=== PATIENT | female | born 1965 | race Caucasian/White ===

== ENCOUNTER 2019-10-27 15:47 | Outpatient (CLI) | payer OTHER, SELFPAY ==
--- NOTE | ~2019-10-27 | MM_ITS ---
EXAMINATION: MM screening [facility]reddy BI w fabiana HISTORY: Screening mammogram TECHNIQUE: Craniocaudal and mediolateral oblique 3-D tomosynthesis images were obtained and synthetic 2-D images were generated. CAD analysis was submitted and interpreted. COMPARISON: 08/27/2018, 08/20/2017, 07/21/2016 bilateral digital screening mammogram examinations BREAST PARENCHYMAL COMPOSITION: FINDINGS: There is focal asymmetry in the upper outer quadrant of the right breast, possibly due to c omposite shadowing of overlapping fibroglandular tissues. Additional diagnostic mammographic views ar e recommended, with ultrasound if required. Otherwise there is no evidence of suspicious mass, calcification, or architectural distortion to sugg est malignancy in either breast. There has been no suspicious interval change. IMPRESSION: 1. Focal asymmetry in the upper outer quadrant of the right breast 2. Diagnostic right mammogram is recommended, with ultrasound if required. BI-RADS Category 0: Incomplete: Needs additional imaging evaluation. Reviewed, dictated and finalized at location A.
== END 2019-10-27 15:48 | disposition home or self-care (01) ==
LOC: ANHIMG 15:49
PROVIDERS: PCP Family Medicine; Visit Provider Obstetrics & Gynecology
DX: Z12.31 Encounter for screening mammogram for malignant neoplasm of breast (principal); R92.8 Other abnormal and inconclusive findings on diagnostic imaging of breast
CPT/HCPCS: 77063; 77067

== ENCOUNTER 2019-11-21 11:43 | Outpatient (CLI) | payer OTHER, SELFPAY ==
--- NOTE | ~2019-11-21 | MMUS_ITS ---
EXAMINATION: MM diagnostic freddy RT w fabiana, US breast RT limited HISTORY: Follow-up right breast asymmetry TECHNIQUE: Additional 3-D tomosynthesis images of the right breast were performed and synthetic 2-D i mages were generated. CAD analysis was submitted and interpreted. High resolution right breast ultras ound was performed. COMPARISON: Comparison to multiple prior studies sequentially, with oldest reviewed study dated 07/09. BREAST PARENCHYMAL COMPOSITION: Breast composed of scattered areas of fibroglandular density. FINDINGS: MAMMOGRAPHIC FINDINGS: There are no suspicious masses, calcifications or architectural distortion in the right breast with s pot compression or mediolateral views. ULTRASOUND: Targeted left breast ultrasound: There are mildly prominent ducts. No discrete masses are identified. No sonographic evidence for malignancy. IMPRESSION: 1. No mammographic or sonographic evidence for malignancy in the right breast. 2. Routine yearly screening mammogram and regular clinical breast examination are recommended. BI-RADS Category 2: Benign finding(s). Reviewed, dictated and finalized at location A. IMPRESSION: 1. No mammographic or sonographic evidence for malignancy in the right breast. 2. Routine yearly screening mammogram and regular clinical breast examination a re recommended. BI-RADS Category 2: Benign finding(s).
== END 2019-11-21 11:44 | disposition home or self-care (01) ==
LOC: ANHIMG 11:45
PROVIDERS: PCP Family Medicine; Visit Provider Obstetrics & Gynecology
DX: R92.8 Other abnormal and inconclusive findings on diagnostic imaging of breast (principal)
CPT/HCPCS: 76642; 77061; 77065; G0279

== ENCOUNTER 2020-07-23 09:42 | Outpatient (CLI) | payer OTHER, SELFPAY | END 2020-07-23 09:43 | disposition home or self-care (01) | LOC: ANHCOVIDVC 09:42 | PROVIDERS: PCP Family Medicine | DX: Z23 Encounter for immunization (principal) | CPT/HCPCS: 0001A; 91300 ==

== ENCOUNTER 2020-08-13 09:40 | Outpatient (CLI) | payer OTHER, SELFPAY | END 2020-08-13 09:41 | disposition home or self-care (01) | LOC: ANHCOVIDVC 09:40 | PROVIDERS: PCP Family Medicine | DX: Z23 Encounter for immunization (principal) | CPT/HCPCS: 0002A; 91300 ==

== ENCOUNTER 2020-12-20 07:53 | Outpatient (CLI) | payer OTHER, SELFPAY ==
--- NOTE | ~2020-12-20 | MM_ITS ---
EXAMINATION: MM screening freddy BI w fabiana HISTORY: Screening mammogram TECHNIQUE: Craniocaudal and mediolateral oblique 3-D tomosynthesis images were obtained and synthetic 2-D images were generated. CAD analysis was submitted and interpreted. COMPARISON: 11/21/2019 diagnostic right mammogram and limited right breast ultrasound 10/27/2019, 08/27/2018 bilateral digital screening mammogram examinations BREAST PARENCHYMAL COMPOSITION: There are scattered areas of fibroglandular density. FINDINGS: There is no evidence of suspicious mass, calcification, or architectural distortion to sugg est malignancy in either breast. There has been no suspicious interval change. IMPRESSION: 1. No mammographic evidence of malignancy. 2. Recommend routine screening mammography in one year. BI-RADS Category 1: Negative Reviewed, dictated and finalized at location A.
== END 2020-12-20 07:54 | disposition home or self-care (01) ==
LOC: ANHIMG 07:56
PROVIDERS: PCP Family Medicine; Visit Provider Obstetrics & Gynecology
DX: Z12.31 Encounter for screening mammogram for malignant neoplasm of breast (principal)
CPT/HCPCS: 77063; 77067

== ENCOUNTER 2021-12-23 07:30 | Outpatient (CLI) | payer OTHER, SELFPAY ==
--- NOTE | ~2021-12-23 | MM_ITS ---
EXAMINATION: MM screening freddy BI w fabiana HISTORY: Screening mammogram TECHNIQUE: Craniocaudal and mediolateral oblique 3-D tomosynthesis images were obtained and synthetic 2-D images were generated. CAD analysis was submitted and interpreted. COMPARISON: 12/20/2020 bilateral screening mammogram 11/21/2019 diagnostic right mammogram and limited right breast ultrasound 10/27/2019, 08/27/2018 bilateral screening mammogram examinations BREAST PARENCHYMAL COMPOSITION: There are scattered areas of fibroglandular density. FINDINGS: There is no evidence of suspicious mass, calcification, or architectural distortion to sugg est malignancy in either breast. There has been no suspicious interval change. IMPRESSION: 1. No mammographic evidence of malignancy. 2. Recommend routine screening mammography in one year. BI-RADS Category 1: Negative Reviewed, dictated and finalized at location A.
== END 2021-12-23 07:31 | disposition home or self-care (01) ==
PROVIDERS: PCP Family Medicine; Visit Provider Obstetrics & Gynecology
DX: Z12.31 Encounter for screening mammogram for malignant neoplasm of breast (principal)
CPT/HCPCS: 77063; 77067

== ENCOUNTER 2023-02-03 07:09 | Outpatient (CLI) | payer OTHER, SELFPAY ==
--- NOTE | ~2023-02-03 | MM_ITS ---
EXAMINATION: MM screening freddy BI w fabiana HISTORY: Screening mammogram TECHNIQUE: Craniocaudal and mediolateral oblique 3-D tomosynthesis images were obtained and synthetic 2-D images were generated. CAD analysis was submitted and interpreted. COMPARISON: 12/23/2021, 12/20/2020 bilateral screening mammogram examinations diagnostic right mammogram and limited right breast ultrasound 10/27/2019 bilateral screening mammogram BREAST PARENCHYMAL COMPOSITION: There are scattered areas of fibroglandular density. FINDINGS: There is no evidence of suspicious mass, calcification, or architectural distortion to sugg est malignancy in either breast. There has been no suspicious interval change. IMPRESSION: 1. No mammographic evidence of malignancy. 2. Recommend routine screening mammography in one year. BI-RADS Category 1: Negative Reviewed, dictated and finalized at location A.
== END 2023-02-03 07:10 | disposition home or self-care (01) ==
PROVIDERS: PCP Family Medicine; Visit Provider Obstetrics & Gynecology
DX: Z12.31 Encounter for screening mammogram for malignant neoplasm of breast (principal)
CPT/HCPCS: 77063; 77067

== ENCOUNTER 2023-03-16 01:29 | Day surgery (SDC) | payer OTHER, SELFPAY ==
[2023-02-26 13:40] VITALS: BMI 28.1
--- NOTE | 2023-03-13 10:43 | SUR.PREOP ---
Patient called regarding upcoming procedure. Reviewed preop instructions, appointment times, and procedure prep.
[2023-03-16 07:21] VITALS: BP 120/76; PULSE 94; RESP 18; TEMP 36.2; O2SAT 100; BMI 24.6
[2023-03-16] MEDS: LACTATED RINGERS 1,000 ML 150 ML IV CONT (07:29)
--- NOTE | 2023-03-16 07:29 | PM.HPGS ---
History of Present Illness History of Present Illness Consent: Risks, benefits, and alternatives have been discussed and questions answered. Patient agrees to proceed with procedure. Chief complaint: neoplasm screening Narrative: Ellyn Goldman is a 58 year old female Presents for screening colonoscopy. Patient is for sister has colon cancer. Patient reports prior colonoscopy 2018 was unremarkable. Patient returns today for screening exam. Her bowel habits are reported to be normal with no bleeding. Review of Systems Review of Systems: Review of systems noncontributory. [facility] Past Medical History Medical History Abnormal Pap smear of cervix 05/15/2006 ASCUS -HPV Diabetes High cholesterol Kidney infection (~11/2011) Miscarriage Screening mammogram, encounter for Uterine fibroid Vaginal after () Surgical History Surgical History History of 05/22/93 primary c/s--breech History of dilation and curettage 08/12/95 suction d&c--miscarriage 03/15/13 hscope d&c/endometrial ablation--menorrhagia--benign History of endometrial ablation 03/15/13 hscope d&c/endometrial ablation--menorrhagia--benign History of neck surgery 09/11/12 bulging disc 08/11/14 cervical fusion History of sinus surgery (06/11/04) Family History Family History Mother Hypertension Family history of malignant neoplasm of brain Malignant tumor of uterus Sibling Hypertension brother Carcinoma of colon sister Father Family history of Alzheimer's disease Malignant neoplasm of prostate Other Breast cancer paternal aunt Social History Social History Smoking status: Never smoker Second hand tobacco smoke exposure: No Alcohol intake: current Drinks per week: 5 Substance use: never Substance use type: does not use Lack of Transportation: No Lack of Food: Never True Current Housing: I Have Housing Concerned About Future Housing: No Difficulty Paying Gas/Electric Bills: No Difficulty Paying for Meds: No Currently Unemployed: No Education: High School Diploma/GED Difficulty w/ Childcare or Family Care: No Living arrangements: with family Additional living arrangements comments: Occupation/Education: occupation Additional occupation/education comments: [employer] Gender identity (if verbalized by the patient): Female Sexual Orientation (if Verbalized by the Patient): Straight or Heterosexual Spiritual care concerns: No Meds Home Medications and Allergies Home Medications Medication Instructions Recorded Confirmed Type urvygegp-cba-ncvgq ac 400 1 tablet PO DAILY 07/01/21 03/16/23 History mcg-calcium carb 500 mg-vit K1 20 mcg tablet (Women's 50 Plus Multivitamin) estradiol 0.5 mg tablet 0.5 mg PO DAILY #90 tabs 10/28/22 03/16/23 Rx progesterone micronized 200 mg 200 mg PO QHS 90 days #90 caps 10/28/22 03/16/23 Rx capsule (Prometrium) Allergies Allergy/AdvReac Type Severity Reaction Status Date / Time No Known Allergies Allergy Mild Verified 03/16/23 07:20 Vital Signs Vital Signs - 24 hr 03/16/23 07:21 Temperature 97.2 F L Pulse Rate 94 Respiratory Rate 18 Blood Pressure 120/76 Pulse Oximetry 100 Oxygen Delivery Room Air Exam Narrative: Physical exam reveals patient to be alert. Vital signs stable. HEENT exam is unremarkable. Patient is anicteric. Lungs are clear to auscultation and percussion. Heart is without murmur or extra sounds. Abdomen bowel sounds present soft nontender with no hepatosplenomegaly. Digital external rectal exam normal. Assessment and Plan Assessment and plan (1) Family hx of colon cancer: Code(s): Z80.0 - Family
--- NOTE | 2023-03-16 08:06 | WPDANESEPPF ---
Anes - Initial Pre Proc Eval Procedure: Operation Date: 03/16/23 08:30 Proposed Procedures p Screening Colonoscopy - Sven Parker MD Date/Time: 03/16/23 08:06 Surgeon: Sven Parker MD Pre Op Diagnosis: neoplasm screening Patient Data Age: 58 Gender: F Height: 1.73 m Weight: 73.5 kg Last Vital Signs Temp 97.2 F L 03/16/23 07:21 Pulse 94 03/16/23 07:21 Resp 18 03/16/23 07:21 BP 120/76 03/16/23 07:21 Pulse Ox 100 03/16/23 07:21 O2 Del Method Room Air 03/16/23 07:21 Allergies Allergy/AdvReac Type Severity Reaction Status Date / Time No Known Allergies Allergy Mild Verified 03/16/23 07:20 Home Medications Medication Instructions Recorded Confirmed Type bdlkjwid-fyr-kidtv ac 400 1 tablet PO DAILY 07/01/21 03/16/23 History mcg-calcium carb 500 mg-vit K1 20 mcg tablet (Women's 50 Plus Multivitamin) estradiol 0.5 mg tablet 0.5 mg PO DAILY #90 tabs 10/28/22 03/16/23 Rx progesterone micronized 200 mg 200 mg PO QHS 90 days #90 caps 10/28/22 03/16/23 Rx capsule (Prometrium) Patient hx anesthesia problems: none Family hx anesthesia problems: none Results Review: All pre-operative results and documents have been reviewed as part of the pre-operative evaluation. [facility] Past Medical History Medical History Abnormal Pap smear of cervix 05/15/2006 ASCUS -HPV Diabetes High cholesterol Kidney infection (~11/2011) Miscarriage Screening mammogram, encounter for Uterine fibroid Vaginal after () Surgical History Surgical History History of 05/22/93 primary c/s--breech History of dilation and curettage 08/12/95 suction d&c--miscarriage 03/15/13 hscope d&c/endometrial ablation--menorrhagia--benign History of endometrial ablation 03/15/13 hscope d&c/endometrial ablation--menorrhagia--benign History of neck surgery 09/11/12 bulging disc 08/11/14 cervical fusion History of sinus surgery (06/11/04) Family History Family History Mother Hypertension Family history of malignant neoplasm of brain Malignant tumor of uterus Sibling Hypertension brother Carcinoma of colon sister Father Family history of Alzheimer's disease Malignant neoplasm of prostate Other Breast cancer paternal aunt Social History Social History Smoking status: Never smoker Second hand tobacco smoke exposure: No Alcohol intake: current Drinks per week: 5 Substance use: never Substance use type: does not use Lack of Transportation: No Lack of Food: Never True Current Housing: I Have Housing Concerned About Future Housing: No Difficulty Paying Gas/Electric Bills: No Difficulty Paying for Meds: No Currently Unemployed: No Education: High School Diploma/GED Difficulty w/ Childcare or Family Care: No Living arrangements: with family Additional living arrangements comments: Occupation/Education: occupation Additional occupation/education comments: [employer] Gender identity (if verbalized by the patient): Female Sexual Orientation (if Verbalized by the Patient): Straight or Heterosexual Spiritual care concerns: No Anes - Eval Final PreProcedure Day of Procedure 03/16/23 08:06 Patient weight: overweight Heart: regular rate and rhythm Lungs: clear to auscultation Airway: Mallampati scale class II Neurological: alert and oriented Last oral intake: >/= 8 hours ASA classification: II Emergent: no Anesthetic plan: proceed Anesthesia type and monitoring: general GIVS and standard monitoring Results Review: All pre-operative results and documents have been reviewed as part of the pre-operative evaluation. Informed Consent: The patient's anesthetic pl
--- NOTE | 2023-03-16 08:12 | SUR.PREOP ---
Urine test not obtained as patient states she is post menopausal.
[2023-03-16] MEDS: SIMETHICONE ORAL SUSPENSION 20 MG/0.3 ML 30 ML BOTTLE 0.6 ML IRRIGATION (09:00)
[2023-03-16 09:07] VITALS: BP 110/70; PULSE 91; RESP 23; O2SAT 100
[2023-03-16 09:17] VITALS: BP 104/56; PULSE 88; RESP 22; O2SAT 98
[2023-03-16 09:27] VITALS: BP 121/75; PULSE 83; RESP 16; O2SAT 100
== END 2023-03-16 09:41 | disposition home or self-care (01) ==
PROVIDERS: PCP Family Medicine; Visit Provider Internal Medicine Gastroenterology
PROC: 0DJD8ZZ Inspection of Lower Intestinal Tract, Via Natural or Artificial Opening Endoscopic (ICD-10-PCS; CPT 45378; principal; 2023-03-16 08:30)
DX: Z12.11 Encounter for screening for malignant neoplasm of colon (principal); K64.8 Other hemorrhoids; E11.9 Type 2 diabetes mellitus without complications; E78.00 Pure hypercholesterolemia, unspecified; Z98.890 Other specified postprocedural states; Z80.0 Family history of malignant neoplasm of digestive organs; Z80.42 Family history of malignant neoplasm of prostate; Z80.3 Family history of malignant neoplasm of breast; Z80.8 Family history of malignant neoplasm of other organs or systems; Z80.49 Family history of malignant neoplasm of other genital organs
CPT/HCPCS: G0105; J2704; J7120

== ENCOUNTER 2024-03-03 07:37 | Outpatient (CLI) | payer OTHER, SELFPAY ==
--- NOTE | ~2024-03-03 | MM_ITS ---
EXAMINATION: MM screening [facility] BI w fabiana HISTORY: Screening mammogram TECHNIQUE: Craniocaudal and mediolateral oblique 3-D tomosynthesis images were obtained and synthetic 2-D images were generated. CAD analysis was submitted and interpreted. COMPARISON: 02/03/2023, 12/23/2021, 12/20/2020 BREAST PARENCHYMAL COMPOSITION:Not Dense. There are scattered areas of fibroglandular density. FINDINGS: No suspicious mass, calcification, or architectural distortion are identified in either prashant ast to suggest malignancy. There has been no suspicious interval change. IMPRESSION: No mammographic evidence of malignancy. Recommend routine screening mammography in one year. BI-RADS Category 1: Negative Reviewed, dictated and finalized at location . MANAGER
== END 2024-03-03 07:38 | disposition home or self-care (01) ==
LOC: ANHIMG 07:38
PROVIDERS: PCP Family Medicine; Visit Provider Obstetrics & Gynecology
DX: Z12.31 Encounter for screening mammogram for malignant neoplasm of breast (principal)
CPT/HCPCS: 77063; 77067

== ENCOUNTER 2025-03-06 07:13 | Outpatient (CLI) | payer OTHER, SELFPAY ==
--- NOTE | ~2025-03-06 | MM_ITS ---
EXAMINATION: MM screening freddy BI w fabiana HISTORY: Screening TECHNIQUE: Craniocaudal and mediolateral oblique 3-D tomosynthesis images were obtained and synthetic 2-D images were generated. CAD analysis was submitted and interpreted. COMPARISON: Comparison to multiple prior studies sequentially, with oldest reviewed study dated 10/27/2019. BREAST PARENCHYMAL COMPOSITION: Not dense: There are scattered areas of fibroglandular density. FINDINGS: There is no evidence of suspicious mass, calcification, or architectural distortion to suggest malignancy in either breast. There has been no suspicious interval change. IMPRESSION: 1. No mammographic evidence of malignancy. 2. Recommend routine screening mammography in one year. BI-RADS Category 1: Negative Reviewed, dictated and finalized at location O. N PACKER
--- OUTSIDE RECORDS SUMMARY | 2025-03-06 07:17 | XMS_ITS | Clinical Summary ---
Author Organization [facility] [address] Address [address] [place] [address] Care Team Providers Care Data Management Name Role Phone Unavailable Primary Care Provider Unavailabl e Source Comments [facility] [address],non-owned Affiliates and Associated Physician Practices is amultiple site organization consisting of ambulatory clinics and hospital sitesin [place], [place], [place] and [place]. This disclosure is being madepursuant to the Care Everywhere program and may not contain all information available regarding this patient. Last updated 18.[facility] [address] Allergies No known active allergies Medications * Be aware that medications may not be up to date on this document. Alwaysverify current medications with the patient. Diphenhydramine- APAP, sleep, (TYLENOL PM EXTRA STRENGTH PO) Take by mouth at bedtime. Active Multiple Vitamin (MULTIVITAMIN ADULT PO) Active Active Problems No known active problems Family History Medical History Relation Name Comments Arthritis - Rheumatoid Father Cancer Father Arthritis - Rheumatoid Mother Cancer Mother Hypertension Mother Seizures Mother Relation Name Status Comments Brother 1 Alive Brother 2 Alive Brother 3 Alive Brother 4 Alive Brother 5 ACCIDENT Father ALZHEIMERS Mother BRAIN CANCER Sister 1 Alive Sister 2 Alive Social History Tobacco Use Types Packs/Day Years Used Date Smoking Tobacco: Never Smokeless Tobacco: Never Alcohol Use Standard Drinks/Week Comments Yes 5 (1 standard drink = 0.6 oz pur e alcohol) Comments No Sex and Gender Information Value Date Recorded Sex Assigned at Not on file Legal Sex Female 3:18 PM CDT Gender Identity Not on file Sexual Orientation Not on file Occupation Industry Job Start Date Job End Date [employer] Not on file Not on file Not on file Last Filed Vital Signs Vital Sign Reading Time Taken Comments Blood Pressure 126/76 12/10/2020 3:11 PM CDT Pulse 77 09/09/2014 8:15 AM CDT Temperature 36.7 C (98 F) 09/09/2014 8:15 AM CDT Respiratory Rate 16 09/09/2014 8:15 AM CDT Oxygen Saturation 100% 09/09/2014 8:15 AM CDT Inhaled Oxygen Concentration - - Weight 73.5 kg (162 lb) 12/10/2020 3:11 PM CDT Height 172.7 cm (5' 8) 12/10/2020 3:11 PM CDT Body Mass Index 24.63 12/10/2020 3:11 PM CDT Plan of Treatment Health Maintenance Due Date Last Done Comments COLOGUARD (AGES 45-75) - COL ON CA SCREENING 1967 COLON MONITORING 1967 COLONOSCOPY - COLON CA SCREENING 1967 CT COLONOGRAPHY - COLON CA SCREENING 1967 Colorectal Cancer Screening 1967 FIT - COLON CA SCREENING 1967 FLEX SIG - COLON CA SCREENING 1967 LIPID TESTING 1967 MAMMOGRAM 1967 HIV SCREENING 1982 HEPATITIS C SCREENING 02/26/1985 DTAP/TDAP/TD VACCINES (1 - Tdap) 1986 HEPATITIS B VACCINE (1 of 3 - 19+ 3-dose series) 1986 PAP SMEAR 1988 Cervical Cancer Screening 1997 PAP with HPV 1997 PNEUMOCOCCAL VACCINE 50+ (1 of 1 - PCV) 2017 ZOSTER VACCINE (1 of 2) 2017 DEPRESSION SCREENING 04/13/2024 COVID-19 VACCINE (2 - 2024-2 6 season) 2024 08/13/2020 INFLUENZA VACCINE (#1) 2024 HIB VACCINE Aged Out No longer eligi ble based on patient's age to complete this topic HPV VACCINE Aged Out No longer eligi ble based on patient's age to complete this topic MENINGOCOCCAL (Group B) VACC INE SHARED DECISION-MAKING Aged Out No longer eligibl e based on patient's age to complete this topic MENINGOCOCCAL GROUPS A/C/Y/W VACCINE Aged Out No longer eligible b ased on patient's age to complete this topic Medical Devices Implanted Type Area Java Technical Manager Device Identifier Shelf Expiration Date Model / Serial / Lot Block Bone Lordotic Asr 7 X 14 X 11mm Implanted:Qty : 1 on 09/30/2012 by Francois Bear MD at [facility] Sp[facility] Cervical Spinal [employer] 09/08/2015 [id number] / / [id number] Plate Cerv Ant Mahomet Vis 23mm Implanted:Qty : 1 on 09/30/2012 by Francois Bear MD at [facility] Cervical Med[employer]onic Sof[employer]or [employer] [id number] / / Scrw Canc Selfdril Vari Ang 4.0mm X 13mm Implanted:Qty : 4 on 09/30/2012 by Francois Bear MD at [facility] Cervical Medtronic Sofamor [employer] [id number] / / Putty Grft Bone Dbm Progenix 1cc Implanted:Qty : 1 on 09/08/2014 by Michoacano Thomson MD at [facility] N/A: Spine Cervical [employer]inal [employer] 03/14/2016 [id number] / / [id number] Cage Cerv Randi/C Sys 10 X 12mm Implanted:Qty : 1 on 09/08/2014 by Michoacano Thomson MD at [facility] N/A: Spine Cervical [employer] 08/11/2018 [id number] / / [id number] [place] [address] [facility] Advance Directives * Full Code (Latest Code Status on File) Date Activated Date Inactivated Comments 09/08/2014 4:07 PM 09/09/2014 1:27 PM * FULL RESUSCITATION Date Activated Date Inactivated Comments 09/30/2012 5:34 PM 10/01/2012 2:16 PM
== END 2025-03-06 07:14 | disposition home or self-care (01) ==
LOC: CHSIMG 07:15
PROVIDERS: PCP Family Medicine; Visit Provider Obstetrics & Gynecology
DX: Z12.31 Encounter for screening mammogram for malignant neoplasm of breast (principal)
CPT/HCPCS: 77063; 77067